=== PATIENT | male | born 1970 | race Caucasian/White ===

== ENCOUNTER 2022-09-24 09:25 | Outpatient (REF) | payer OTHER, SELFPAY ==
[2022-09-24 09:37] LABS: MANUAL DIFF FLAG NO
[2022-09-24 11:12] LABS: Basophils Absolute Auto 0.1 X10*3/uL (0.0-0.2); Basophils Percent Auto 0.7 % (0-2); Eosinophils Absolute Auto 0.2 X10*3/uL (0.0-0.4); Eosinophils Percent Auto 2.2 % (0-4); Hematocrit 45.3 % (42.0-52.0); Hemoglobin 15.8 g/dl (14.0-18.0); Imm Gran Abs Auto 0.04 X10*3/uL (0.00-0.03); Imm Gran Pct Auto 0.6 % (0.0-0.4); Lymphocytes Percent Auto 28.7 % (20-40); Mean Corpuscular HGB Conc 34.9 g/dl (31.0-36.0); Mean Corpuscular Hemoglobin 31.4 pg (27.0-33.0); Mean Corpuscular Volume 90.1 fL (80.0-98.0); Mean Platelet Volume 10.1 fL (9.4-12.4); Monocytes Absolute Auto 0.7 X10*3/uL (0.1-1.2); Monocytes Percent Auto 10.7 % (2-11); Neutrophils Percent Auto 57.1 % (45-73); Platelet Count 239 X10*3/uL (160-400); Red Blood Count 5.03 X10*6/uL (4.60-5.80); Red Cell Distribution Width 12.5 % (11.0-16.0); White Blood Count 6.9 X10*3/uL (4.8-10.8)
[2022-09-24 11:47] LABS: Alanine Aminotransferase 26 U/L (0-40); Albumin Level 4.1 g/dL (3.5-5.0); Alkaline Phosphatase 82 U/L (39-117); Anion Gap 10 (12-20); Aspartate Amino Transferase 18 U/L (5-37); Bilirubin Total 0.8 mg/dL (0.0-1.0); Blood Urea Nitrogen 13 mg/dL (9-16); Calcium 9.4 mg/dL (8.4-10.2); Carbon Dioxide 27 mmol/L (22-29); Chloride 107 mmol/L (96-108); Cholesterol 189 mg/dL; Estimated Glomerular Filt Rate > 60; Glucose Fasting 82 mg/dL (60-99); HDL Cholesterol 30 mg/dL; LDL Cholesterol Calculated 127 mg/dl; Potassium 3.9 mmol/L (3.3-5.1); Sodium 140 mmol/L (135-145); Triglycerides 162 mg/dL
== END 2022-09-24 09:26 | disposition home or self-care (01) ==
LOC: HO.LAB 09:25
PROVIDERS: PCP Internal Medicine; Visit Provider Internal Medicine
DX: N28.9 Disorder of kidney and ureter, unspecified (principal); D64.9 Anemia, unspecified; E78.5 Hyperlipidemia, unspecified
CPT/HCPCS: 36415; 80053; 80061; 85025

== ENCOUNTER 2022-10-22 14:09 | Outpatient (AMB) | payer OTHER, SELFPAY ==
--- NOTE | 2022-10-22 14:10 | MHC.PC.OV ---
Vital Signs 10/22/22 14:12 Height 6 ft 1 in Weight 243 lb 4 oz BMI 32.1 BP 120/70 Blood Pressure Location Lt brachial Position Sitting Pulse 87 Pulse Source Pulse Oximeter Pulse Oximetry (%) 97 Oxygen Delivery Method Room Air Intake Visit Reasons: Swollen Left Knee Intake Note: Patient is here to follow up on swollen left knee. Ride Operator Required: No Forensic Materials Engineer: Not Required per policy Accompanied by: Self / Same As Patient Allergies No Known Allergies Allergy (Verified 10/22/22 14:11) Medication List - Last Reconciled 10/22/22 by Frankie Milton MD cephalexin 250 mg PO Q6H fluticasone propionate 50 mcg/actuation (Flonase Allergy Relief) 1 spray intranasal BID Tobacco use date assessed: 09/24/22 Dental Screening Dental Screen Date: 10/22/22 Did you have a dental visit in the last 12 months?: Yes Did you have a dental problem in the last 6 months where you did not have access to dental care?: No Was dental information given to patient?: Patient has dentist HPI Swollen Left Knee HPI Details left leg red and warm; possible insect bite PFSH Surgical History (Updated 10/22/22 @ 14:14 by KALA Garg) History of appendectomy Social History Housing: House Patient Tobacco Use Status: Never used Tobacco Tobacco use type: Cigarette e-Cigarette/Vaping Use: Never Used Second Hand Smoke Exposure: No service: No Current occupational status: employed Cognitive needs: No Hearing needs: No Vision needs: No Questionnaire Thrive Questionnaire Date Thrive assessed: 09/24/22 JOHN-7 AMB Questionnaire JOHN-7 Date JOHN - 7 assessed: 09/24/22 Source: Developed by Drs. Luis West, Kaitlin Gordillo, Leander Moya and colleagues, with an educational tyron from [employer]. Review of Systems Const Denies chills, Denies headache(s) and Denies weight loss ENT Denies headache(s) Card Denies chest pain, Denies syncope, Denies irregular heart rhythm and Denies dyspnea Resp Denies chest congestion, Denies cough and Denies dyspnea GI Denies abdominal pain, Denies change in stool character, Denies nausea and Denies vomiting Musc Denies deformity and Denies joint swelling Neuro Denies syncope and Denies headache(s) Physical exam (Primary Care) Vital Signs: Last Vital Signs Pulse 87 10/22/22 14:12 BP 120/70 10/22/22 14:12 Pulse Ox 97 10/22/22 14:12 Oxygen Delivery Method Room Air 10/22/22 14:12 BMI result Body Mass Index 32.1 Tobacco/Smoking Status: Tobacco use Status Tobacco use date assessed 09/24/22 10/22/22 14:15 Patient Tobacco Use Status Never used Tobacco 10/22/22 14:15 Tobacco use type Cigarette 10/22/22 14:15 e-Cigarette/Vaping Use Never Used 10/22/22 14:15 Thrive Assessment: Date of Thrive Assessment Date Thrive assessed 09/24/22 10/22/22 14:15 Const General: cooperative, comfortable and no acute distress Resp Effort & Inspection: normal respiratory effort Auscultation: clear to auscultation bilaterally Percussion: percussion normal Cardio Jugular venous distension: no JVD Rate: regular rate Rhythm: regular rhythm Skin Other: cellulitis left lower leg Assessment and Plan Assessment & Plan (1) Cellulitis, leg: Code(s): L03.119 - Cellulitis of unspecified part of limb Plan rx Orders: Orders XR knee LT 2V Today M25.569 - Pain in unspecified knee Medications: New cephalexin 250 mg PO Q6H 20 caps 0RF Coding Level of Care Code Est Pt Level 3 (46094) Diagnoses Cellulitis, leg L03.119
[2022-10-22 14:12] VITALS: BP 120/70; PULSE 87; O2SAT 97; BMI 32.1
== END 2022-10-22 14:21 | disposition home or self-care (01) ==
PROVIDERS: PCP Internal Medicine; Visit Provider Internal Medicine
DX: L03.119 Cellulitis of unspecified part of limb (principal)
CPT/HCPCS: 99213

== ENCOUNTER 2022-10-22 14:24 | Outpatient (REF) | payer OTHER, SELFPAY ==
--- NOTE | ~2022-10-22 | XR_ITS ---
EXAMINATION: XR KNEE, LEFT CLINICAL INFORMATION: Pain. No injury. Left knee swelling. COMPARISON: None available. TECHNIQUE: 2 views of the left knee. XR/XR knee LT 2V FINDINGS / IMPRESSION: No fracture. Alignment is anatomic. There is mild degenerative disease of the patellofemoral joint. No suprapatellar effusion. No abnormal soft tissue calcification.
== END 2022-10-22 14:25 | disposition home or self-care (01) ==
LOC: HO.XRAY 14:24
PROVIDERS: PCP Internal Medicine; Visit Provider Internal Medicine
DX: M25.562 Pain in left knee (principal)
CPT/HCPCS: 73560

== ENCOUNTER 2022-11-09 11:38 | Outpatient (AMB) | payer OTHER, SELFPAY ==
--- NOTE | 2022-11-09 11:44 | A.OFFPC_ITS ---
Vital Signs 11/09/22 11:45 Height 6 ft 1 in Weight 238 lb 8 oz BMI 31.5 BP 120/60 Blood Pressure Location Lt brachial Position Sitting Pulse 72 Pulse Source Pulse Oximeter Pulse Oximetry (%) 97 Oxygen Delivery Method Room Air Intake Visit Reasons: Ear Blockage Intake Note: Patient is here today for right ear blockage and ringing Skip Pit Worker Required: No Office Asst: Not Required per policy Accompanied by: Self / Same As Patient Allergies No Known Allergies Allergy (Verified 11/09/22 11:45) Tobacco use date assessed: 11/09/22 HPI Ear Blockage HPI Details ringing and ear blockage for a month or so [facility] Surgical History History of appendectomy Social History Housing: House Patient Tobacco Use Status: Never used Tobacco Tobacco use type: Cigarette e-Cigarette/Vaping Use: Never Used Second Hand Smoke Exposure: No service: No Current occupational status: employed Cognitive needs: No Hearing needs: No Vision needs: No Questionnaire Thrive Questionnaire Date Thrive assessed: 09/24/22 JOHN-7 AMB Questionnaire JOHN-7 Date JOHN - 7 assessed: 09/24/22 Source: Developed by Drs. Luis West, Kaitlin Gordillo, Leander Moya and colleagues, with an educational tyron from [employer]. Review of Systems Const Denies chills, Denies headache(s) and Denies weight loss ENT Denies headache(s) Card Denies chest pain, Denies syncope, Denies irregular heart rhythm and Denies dyspnea Resp Denies chest congestion, Denies cough and Denies dyspnea GI Denies abdominal pain, Denies change in stool character, Denies nausea and Denies vomiting Musc Denies deformity and Denies joint swelling Neuro Denies syncope and Denies headache(s) Physical exam (Primary Care) Vital Signs: Last Vital Signs Pulse 72 11/09/22 11:45 BP 120/60 11/09/22 11:45 Pulse Ox 97 11/09/22 11:45 Oxygen Delivery Method Room Air 11/09/22 11:45 BMI result Body Mass Index 31.5 Tobacco/Smoking Status: Tobacco use Status Tobacco use date assessed 11/09/22 11/09/22 11:49 Patient Tobacco Use Status Never used Tobacco 11/09/22 11:49 Tobacco use type Cigarette 11/09/22 11:49 e-Cigarette/Vaping Use Never Used 11/09/22 11:49 Thrive Assessment: Date of Thrive Assessment Date Thrive assessed 09/24/22 11/09/22 11:49 Const General: cooperative, comfortable and no acute distress HENMT Other: tms nl Resp Effort & Inspection: normal respiratory effort Auscultation: clear to auscultation bilaterally Percussion: percussion normal Cardio Jugular venous distension: no JVD Rate: regular rate Rhythm: regular rhythm Skin Other: cellulitis left lower leg Assessment and Plan Assessment & Plan (1) Abnormal ear sensation: Code(s): H93.8X9 - Other specified disorders of ear, unspecified ear Plan: ref ent Orders: Referrals Ear/Nose/Throat Referral H93.8X9 - Other specified disorders of ear, unspecified ear Coding Level of Care Code Est Pt Level 3 (02446) Diagnoses Abnormal ear sensation H93.8X9
[2022-11-09 11:45] VITALS: BP 120/60; PULSE 72; O2SAT 97; BMI 31.5
== END 2022-11-09 11:55 | disposition home or self-care (01) ==
PROVIDERS: PCP Internal Medicine; Visit Provider Internal Medicine
DX: H93.8X9 Other specified disorders of ear, unspecified ear (principal)
CPT/HCPCS: 99213

== ENCOUNTER 2023-06-10 09:56 | Day surgery (SDC) | payer BC, SELFPAY ==
[2023-06-08 14:45] VITALS: BMI 32.1
--- NOTE | 2023-06-09 13:11 | HO.ANESPROP2 ---
HPI - Anesthesia Eval Consult details Narrative: 52yo M for Colonoscopy PMFSH Active Problems Active Problems: All Active Problems (Updated 06/08/23 @ 14:47 by Digna Barahona RN) Allergic rhinitis (Acute) Physical exam (Acute) Past Medical History Medical History (Updated 06/08/23 @ 14:47 by Digna Barahona RN) No pertinent past medical history Surgical History Surgical History History of appendectomy Social History Social History (Updated 06/08/23 @ 14:46 by Digna Barahona RN) Housing: House Patient Tobacco Use Status: Never used Tobacco Tobacco use type: Cigarette e-Cigarette/Vaping Use: Never Used Second Hand Smoke Exposure: No Use of substances other than those prescribed or required for medical reasons: No Are you DNR?: No Advance Directives: No Advance Directives Information Provided: Yes Advance Directives on File: No service: No Current occupational status: employed Cognitive needs: No Hearing needs: No Vision needs: No Meds Allergies Allergy/AdvReac Type Severity Reaction Status Date / Time No Known Allergies Allergy Verified 11/09/22 11:45 Home Medications Medication Instructions Recorded Confirmed Last Taken Type cyclobenzaprine 10 mg tablet 10 mg PO BEDTIME 06/08/23 06/08/23 Unknown History multivitamin 1 tab PO DAILY 06/08/23 06/08/23 Unknown History Exam Height,Weight and Vital Signs: Height 6 ft 1 in Weight 110.223 kg Assessment and Plan Assessment Anesthesia Assessment: Chart Reviewed
[2023-06-10 10:32] VITALS: BMI 32.2
[2023-06-10 10:43] VITALS: BP 117/74; PULSE 77; RESP 16; TEMP 36.6; O2SAT 97
[2023-06-10 12:02] VITALS: BP 95/67; PULSE 71; RESP 12; TEMP 36.6; O2SAT 95
--- NOTE | 2023-06-10 12:08 | P.BOP_ITS ---
Brief Operative Note Date of Service: 06/10/23 Pre-op diagnosis: Screening Post-op diagnosis: other (Colon polyps) Procedure: Colonoscopy to the cecum and TI with hot snare polypectomy x 3, and bx/removal of polyp x 1. Surgeon: Luis Fields MD Anesthesia: MAC Was an Attending Urologist used for this Procedure?: No Estimated blood loss (mL): 2.0 Pathology: other (A. Transverse colon polyps B. Ascending colon polyp C. Rectal polyp) Condition: stable Disposition: PACU
[2023-06-10 12:17] VITALS: BP 105/73; PULSE 71; RESP 16; O2SAT 97
[2023-06-10 12:32] VITALS: BP 109/67; PULSE 86; RESP 16; TEMP 36.6; O2SAT 97
--- NOTE | 2023-06-14 08:32 | OP_ITS ---
DATE OF SERVICE: 06/10/2023 SURGEON: Luis Fields MD INDICATIONS: The patient presents for evaluation of colorectal cancer screening. Full consent has been obtained from him for this, including risks of bleeding and perforation. PREOPERATIVE DIAGNOSIS: Colorectal cancer screening. POSTOPERATIVE DIAGNOSIS: PROCEDURE PERFORMED: Colonoscopy to the cecum and terminal ileum with hot snare polypectomy x3, and biopsy and removal of polyp. ESTIMATED BLOOD LOSS: COMPLICATIONS: ANESTHESIA: Monitored anesthesia care. ASSISTANTS: SPECIMENS: POSTOPERATIVE DIAGNOSES: Colorectal cancer screening, colon polyps, diverticulosis, and internal hemorrhoids. DESCRIPTION OF PROCEDURE: The patient was placed in the left lateral decubitus position. The digital rectal exam revealed no abnormality. The Olympus video pediatric colonoscope was entered into the rectum and advanced easily to the cecum. Once in the cecum, I did identify normal-appearing cecal pouch with appendiceal orifice and a normal-appearing ileocecal valve. The terminal ileum was cannulated and appeared normal. The scope was withdrawn back in the colon. The entire cecum and ileocecal valve appeared normal. The scope was slowly withdrawn assessing all mucosal surfaces carefully. Preparation was excellent. In the proximal ascending colon was an approximately 8 to 10 mm grossly adenomatous polyp, which was removed by hot snare polypectomy and recovered by suction. The polypectomy site appeared clean, without any sign of residual polyp nor bleeding. In the transverse colon was a flat, approximately 4 mm polyp, which was removed completely by cold biopsy forceps. In the same area was an approximately 6 mm polyp, which was removed by hot snare polypectomy and recovered by suction. The polypectomy site appeared clean, without any sign of residual polyp nor bleeding. Both of those polyps were placed in the same container. There was a mild amount of sigmoid diverticulosis. I did not visualize any sign of colitis or angiodysplasia. In the mid rectum was an approximately 10 to 12 mm polyp on a short stalk, which was removed by hot snare polypectomy and recovered by suction. The polypectomy site appeared clean, without any sign of residual polyp nor bleeding. I did not visualize any other polyps. In the rectum, scope was retroflexed visualizing some small internal hemorrhoids, but no other pathology. The rectal mucosa appeared normal. The scope was straightened and withdrawn from the patient. He tolerated the procedure well and was returned to the recovery area in stable condition. IMPRESSION: 1. Colon polyps. 2. Diverticulosis. 3. Internal hemorrhoids. PLAN: Given today's findings, I would recommend a repeat colonoscopy in 5 years for further surveillance. He was advised not to use any aspirin nor NSAIDs for at least 1 week. This has been discussed with his . MD LEANN Carrera/RHONDA / [phone]
== END 2023-06-10 12:54 | disposition home or self-care (01) ==
PROVIDERS: PCP Internal Medicine; Visit Provider Internal Medicine
PROC: 0DJD8ZZ Inspection of Lower Intestinal Tract, Via Natural or Artificial Opening Endoscopic (ICD-10-PCS; CPT 45378; principal; 2023-06-10 11:50)
DX: Z12.11 Encounter for screening for malignant neoplasm of colon (principal); D12.2 Benign neoplasm of ascending colon; D12.3 Benign neoplasm of transverse colon; D12.8 Benign neoplasm of rectum; K57.30 Diverticulosis of large intestine without perforation or abscess without bleeding; K64.8 Other hemorrhoids
CPT/HCPCS: 45385; 45380; 88305; J2250; J2704

== ENCOUNTER 2023-07-12 09:21 | Outpatient (AMB) | payer BC, SELFPAY ==
[2023-07-12 09:21] VITALS: BP 116/80; PULSE 67; O2SAT 98; BMI 32.2
--- NOTE | 2023-07-12 09:21 | A.OFFPC_ITS ---
Vital Signs 07/12/23 09:21 Height 6 ft 1 in Weight 244 lb BMI 32.2 BP 116/80 Blood Pressure Location Lt brachial Position Sitting Pulse 67 Pulse Source Pulse Oximeter Pulse Oximetry (%) 98 Oxygen Delivery Method Room Air Intake Visit Reasons: knee problems Group Insurance Special Agent Required: No Prosthetic Aide: Not Required per policy Accompanied by: Self / Same As Patient Allergies No Known Allergies Allergy (Verified 07/12/23 09:22) Tobacco use date assessed: 07/12/23 Dental Screening Dental Screen Date: 07/12/23 Did you have a dental visit in the last 12 months?: Yes Did you have a dental problem in the last 6 months where you did not have access to dental care?: No Was dental information given to patient?: Patient has dentist HPI knee problems HPI Details right knee pain intermittently for months; denies injury [facility] Medical History (Updated 07/12/23 @ 09:31 by Frankie Milton MD) No pertinent past medical history Surgical History History of appendectomy Social History Housing: House Patient Tobacco Use Status: Never used Tobacco Tobacco use type: Cigarette e-Cigarette/Vaping Use: Never Used Second Hand Smoke Exposure: No service: No Current occupational status: employed Cognitive needs: No Hearing needs: No Vision needs: Yes Questionnaire PHQ-9 Over the last 2 weeks, how often have you been bothered by any of the following problems? 1. Little interest or pleasure in doing things: not at all 2. Feeling down, depressed, or hopeless: not at all 3. Trouble falling or staying asleep, or sleeping too much: not at all 4. Feeling tired or having little energy: not at all 5. Poor appetite or overeating: not at all 6. Feeling bad about yourself - or that you are a failure or have let yourself or your family down: not at all 7. Trouble concentrating on things, such as reading the newspaper or watching television: not at all 8. Moving or speaking so slowly that other people could have noticed. Or the opposite - being so fidgety or restless that you have been moving around a lot more than usual: not at all 9. Thoughts that you would be better off or of hurting yourself in some way: not at all Total score: 0 Depression Screening Interpretation: Negative Depression Screening Done: Yes 63992 - PHQ-9 Billing: Yes Source: Developed by Drs. Luis West, Leander Vela and colleagues, with an educational tyron from [employer]. Thrive Questionnaire Date Thrive assessed: 07/12/23 I am a: Patient What is your living situation today?: I have a steady place to live Within the past 12 months, did the food you bought not last and you didn't have the money to get more?: Never true Within the past 12 months, did you worry whether your food would run out before you got money to buy more?: Never true Do you have trouble paying for medicines?: No Do you have trouble getting transportation to medical appointments?: No Do you have trouble paying your heating and electricity bill?: No Do you have trouble taking care of your child, family member or friend?: No Do you have trouble with day-to-day activities such as bathing, preparing meals, shopping, managing finances, etc.?: No Are you currently unemployed and looking for a job?: No Are you interested in more education?: No Please select the resources that you would like help with: None THRIVE Score: 0 AUDIT C Alcohol Use Questionnaire (AUDIT-C) 1. How often do you have a drink containing alcohol?: Never Total Score: 0 Score Reviewed/Action Taken: Yes JOHN-7 AMB Questionnaire JOHN-7 Date JOHN - 7 assessed: 07/12/23 Feeling nervous, anxious, or on edge: 0 = Not at all Not being able to stop or control worryin = Not at all Worrying too much about different things: 0 = Not at all Trouble relaxin = Not at all Being so restless that it is hard to sit still: 0 = Not at all Becoming easily annoyed or irritable: 0 = Not at all Feeling afraid as if something awful might happen: 0 = Not at all Total JOHN-7 score (0-4 normal; 5-9 mild; 10-14 moderate; 15-21 severe): 0 Source: Developed by Kaitlin Cervantes Kurt Kroenke and colleagues, with an educational tyron from [employer]. Review of Systems Const Denies chills, Denies headache(s) and Denies weight loss ENT Denies headache(s) Card Denies chest pain, Denies syncope, Denies irregular heart rhythm and Denies dyspnea Resp Denies chest congestion, Denies cough and Denies dyspnea GI Denies abdominal pain, Denies change in stool character, Denies nausea and Denies vomiting Musc Denies deformity and Denies joint swelling Neuro Denies syncope and Denies headache(s) Physical exam (Primary Care) Vital Signs: Last Vital Signs Pulse 67 07/12/23 09:21 BP 116/80 07/12/23 09:21 Pulse Ox 98 07/12/23 09:21 Oxygen Delivery Method Room Air 07/12/23 09:21 BMI result Body Mass Index 32.2 Tobacco/Smoking Status: Tobacco use Status Tobacco use date assessed 07/12/23 07/12/23 09:23 Patient Tobacco Use Status Never used Tobacco 07/12/23 09:23 Tobacco use type Cigarette 07/12/23 09:23 e-Cigarette/Vaping Use Never Used 07/12/23 09:23 PHQ-9: PHQ-9 Score PHQ-9: Total score 0 07/12/23 09:23 Depression Screening Interpretation: Negative Thrive Assessment: Date of Thrive Assessment Date Thrive assessed 07/12/23 07/12/23 09:23 Const General: cooperative, comfortable, no acute distress and alert Neck Neck: Yes no lymphadenopathy Thyroid: Thyroid normal Resp Effort & Inspection: normal respiratory effort Auscultation: clear to auscultation bilaterally Percussion: percussion normal Cardio Jugular venous distension: no JVD Palpation: normal PMI Rate: regular rate Rhythm: regular rhythm Heart sounds: S1 normal heart sound present and S2 normal heart sound present GI Inspection: Yes normal to inspection Palpation (GI): No hepatosplenomegaly present Skin General skin exam: no rashes or lesions noted Extrem General: Yes no clubbing, cyanosis or edema Assessment and Plan Assessment & Plan (1) Knee pain, right: Code(s): M25.561 - Pain in right knee Plan: xr; ice ans NSAIDS Orders: Orders XR knee RT 2V Today M25.569 - Pain in unspecified knee Referrals Dermatology Referral R22.9 - Localized swelling, mass and lump, unspecified Orthopedics Referral M25.561 - Pain in right knee Coding Level of Care Code Est Pt Level 3 (60234) Diagnoses Knee pain, right M25.561
== END 2023-07-12 09:40 | disposition home or self-care (01) ==
PROVIDERS: PCP Internal Medicine; Visit Provider Internal Medicine
DX: M25.561 Pain in right knee (principal)
CPT/HCPCS: 99213

== ENCOUNTER 2023-08-02 10:23 | Outpatient (AMB) | payer BC, SELFPAY ==
[2023-08-02 10:44] VITALS: BMI 32.2
--- NOTE | 2023-08-02 10:44 | MHC.OFFVIS ---
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 He describes his pain as sharp in nature. Most of the pain is along the medial aspect of his knee. His pain has gotten worse over the last year in spite of continued non operative treatments. He has failed the last 6 weeks of conservative therapy. He has done physical therapy exercises which aggravated his pain. He has also tried Tylenol and anti-inflammatory medicines which gave him minimal relief. Allergies No Known Allergies Allergy (Verified 08/02/23 10:49) Medication List - Last Reconciled 08/02/23 by Gael White MD multivitamin 1 tab PO DAILY [facility] Medical History (Updated 07/12/23 @ 09:31 by Frankie Milton MD) No pertinent past medical history Surgical History History of appendectomy Social History Housing: House Patient Tobacco Use Status: Never used Tobacco Tobacco use type: Cigarette e-Cigarette/Vaping Use: Never Used Second Hand Smoke Exposure: No service: No Current occupational status: employed Cognitive needs: No Hearing needs: No Vision needs: Yes Physical Exam Vital Signs: BMI result Body Mass Index 32.2 Const Other: Well-nourished well-developed very friendly male awake alert and oriented x3 in no acute distress Extrem Other: Bilateral lower extremity examination shows good capillary refill, no skin lesions noted, normal sensation light touch Right knee examination shows a minimal effusion, minimal crepitus with range of motion, tenderness along his medial joint line, positive Larry's test, no instability Results Reviewed Results Reviewed: Standing full weight-bearing X-rays of the patient's right knee show minimal joint space narrowing, no acute bony abnormalities Assessment & Plan Assessment & Plan (1) Knee pain, right: Code(s): M25.561 - Pain in right knee Category: Medical Plan Mr. James presents with right knee pain and mechanical symptoms most likely due to a tear of his medial meniscus. Thus, I will send the patient for an MRI of his right knee for further evaluation. Once the MRI is completed to discuss the findings and treatment options. Feel free to call me at any time should questions regarding his orthopedic management arise. Thank you very much for asking me see this very friendly gentleman. I spent 22 minutes in reviewing the patient's records and imaging studies, seeing the patient and documenting in the medical record. Orders: Orders MR knee RT wo con Today M25.561 - Pain in right knee Coding Level of Care Code New Pt Level 2 (08756) Diagnoses Knee pain, right M25.561
== END 2023-08-02 11:12 | disposition home or self-care (01) ==
PROVIDERS: PCP Internal Medicine; Visit Provider Orthopaedic Surgery
DX: M25.561 Pain in right knee (principal)
CPT/HCPCS: 99202

== ENCOUNTER → 2023-08-02 10:23 | Outpatient (BNVA) | payer BC, SELFPAY | PROVIDERS: PCP Internal Medicine; Visit Provider Orthopaedic Surgery ==

== ENCOUNTER 2023-08-16 07:36 | Outpatient (AMB) | payer BC, SELFPAY ==
--- NOTE | 2023-08-16 07:45 | A.OFFVIS_ITS ---
Vital Signs 08/16/23 07:46 Height 5 ft 1 in Weight 244 lb BMI 46.1 Intake Visit Reasons: OV- MRI review Right knee Intake Note: Rivas is a 52 year old male who presents for his Right knee MRI. Describes his right knee pain as sharp in nature. He has had cortisone injections given into his low back which gave him only short-term relief. He has tried Tylenol and anti-inflammatory medicines which gave him minimal relief. He has also done physical therapy exercises which aggravated his pain. Wishes to hold off on surgery for as long as possible. Allergies No Known Allergies Allergy (Verified 08/16/23 07:46) Medication List - Last Reconciled 08/16/23 by Gael White MD multivitamin 1 tab PO DAILY [facility] Medical History No pertinent past medical history Surgical History History of appendectomy Social History Housing: House Patient Tobacco Use Status: Never used Tobacco Tobacco use type: Cigarette e-Cigarette/Vaping Use: Never Used Second Hand Smoke Exposure: No service: No Current occupational status: employed Cognitive needs: No Hearing needs: No Vision needs: Yes Physical Exam Vital Signs: BMI result Body Mass Index 46.1 Const Other: Well-nourished well-developed very friendly male awake alert and oriented x3 in no acute distress Extrem Other: Bilateral lower extremity examination shows good capillary refill, no skin lesions noted, normal sensation light touch Right knee examination shows a minimal effusion, palpable crepitus with range of motion, pain with range of motion, no instability Results Reviewed Results Reviewed: MRI of the patient's right knee shows diffuse moderate degenerative changes as well as 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 James presents with right knee pain due to degenerative joint disease. I had a lengthy discussion with the patient regarding the treatment options. He wishes to hold off on right total knee replacement surgery for as long as possible. I agree with this plan. I will see whether not the patient's insurance company will cover a viscosupplementation injection. I I will see him back once the injection is available. Feel free to call me at any time should questions regarding his orthopedic management arise. I spent 20 minutes in reviewing the patient's records and imaging studies, seeing the patient and documenting in the medical record. Coding Level of Care Code Est Pt Level 3 (23580) Diagnoses Arthritis of right knee M17.11
[2023-08-16 07:46] VITALS: BMI 46.1
== END 2023-08-16 07:58 | disposition home or self-care (01) ==
PROVIDERS: PCP Internal Medicine; Visit Provider Orthopaedic Surgery
DX: M17.11 Unilateral primary osteoarthritis, right knee (principal)
CPT/HCPCS: 99213

== ENCOUNTER → 2023-08-16 07:36 | Outpatient (BNVA) | payer BC, SELFPAY | PROVIDERS: PCP Internal Medicine; Visit Provider Orthopaedic Surgery ==

== ENCOUNTER 2023-10-11 07:35 | Outpatient (AMB) | payer BC, SELFPAY ==
--- NOTE | 2023-10-11 07:42 | MHC.OFFVIS ---
Intake Visit Reasons: OV - Right knee pain Intake Note: Rivas is a 52 year old male who presents as a new patient with Right knee pain and giving way. He describes his pain as sharp in nature. Most of the pain is along the medial aspect of his knee. His pain has gotten worse over the last year in spite of continued non operative treatments. He has failed the last 6 weeks of conservative therapy. He has done physical therapy exercises which aggravated his pain. He has also tried Tylenol and anti-inflammatory medicines which gave him minimal relief. Allergies No Known Allergies Allergy (Verified 10/11/23 07:42) Medication List - Last Reconciled 10/11/23 by Gael White MD multivitamin 1 tab PO DAILY [facility] Medical History No pertinent past medical history Surgical History History of appendectomy Social History Housing: House Patient Tobacco Use Status: Never used Tobacco Tobacco use type: Cigarette e-Cigarette/Vaping Use: Never Used Second Hand Smoke Exposure: No service: No Current occupational status: employed Cognitive needs: No Hearing needs: No Vision needs: Yes Physical Exam Const Other: Well-nourished well-developed very friendly male awake alert and oriented x3 in no acute distress Extrem Other: Bilateral lower extremity examination shows good capillary refill, no skin lesions noted, normal sensation light touch Right knee examination shows a minimal effusion, minimal crepitus with range of motion, tenderness along his medial joint line, positive Larry's test, no instability Results Reviewed Results Reviewed: MRI of the patient's right knee shows mild to moderate diffuse degenerative changes as well as a tear of the medial meniscus Assessment & Plan Assessment & Plan (1) Tear of medial meniscus of right knee: Code(s): S83.241A - Other tear of medial meniscus, current injury, right knee, initial encounter Category: Medical Plan Mr. James presents with progressively worsening right knee pain and mechanical symptoms due to early degenerative joint disease as well as a tear of his medial meniscus. I had a lengthy discussion with the patient regarding the treatment options. At this point he has failed continued non operative treatments. The risks and benefits of right knee arthroscopic surgery were discussed at length with the patient. The patient wishes to proceed with surgery. He does understand that he may not get 100% relief of his symptoms depending on the severity of his degenerative changes. The patient will be scheduled for next available date. He will follow-up as instructed. Feel free to call me at any time should questions regarding his orthopedic management arise. I spent 20 minutes in reviewing the patient's records and imaging studies, seeing the patient and documenting in the medical record. Coding Level of Care Code Est Pt Level 3 (04780) Diagnoses Tear of medial meniscus of right knee S83.241A
== END 2023-10-11 07:59 | disposition home or self-care (01) ==
PROVIDERS: PCP Internal Medicine; Referring Provider Internal Medicine; Visit Provider Orthopaedic Surgery
DX: S83.241A Other tear of medial meniscus, current injury, right knee, initial encounter (principal)
CPT/HCPCS: 99214

== ENCOUNTER → 2023-10-11 07:35 | Outpatient (BNVA) | payer BC, SELFPAY | PROVIDERS: PCP Internal Medicine; Visit Provider Orthopaedic Surgery ==

== ENCOUNTER 2023-10-21 06:45 | Day surgery (SDC) | payer BC, SELFPAY ==
[2023-10-19 11:20] VITALS: BMI 32.2
--- NOTE | 2023-10-19 14:13 | HO.ANESPROP2 ---
Documented by User: Angeline Ponce NP 10/19/23 14:14 HPI - Anesthesia Eval Consult details Narrative: 52yo M for Right Knee Arthroscopy partial medial meniscectomy, [facility] Active Problems Active Problems: All Active Problems Tear of medial meniscus of right knee (Acute) Arthritis of right knee (Acute) Knee pain, right (Acute) Allergic rhinitis (Acute) Physical exam (Acute) Past Medical History Medical History Arthritis Surgical History Surgical History H/O colonoscopy History of appendectomy Social History Social History Housing: House Patient Tobacco Use Status: Never used Tobacco Tobacco use type: Cigarette e-Cigarette/Vaping Use: Never Used Second Hand Smoke Exposure: No Use of substances other than those prescribed or required for medical reasons: No Are you DNR?: No Advance Directives: No Advance Directives Information Provided: Yes service: No Current occupational status: employed Cognitive needs: No Hearing needs: No Vision needs: Yes Meds Allergies Allergy/AdvReac Type Severity Reaction Status Date / Time No Known Allergies Allergy Verified 10/21/23 07:02 Active Medications: Current Medications Cefazolin Sodium/Dextrose (Ancef) 2 gm in 50 mls @ 100 mls/hr IV PREOP ONE Stop: 10/21/23 06:04 Home Medications ?Medication ?Instructions ?Recorded ?Confirmed ?Last Taken ?Type multivitamin 1 tab PO DAILY 06/08/23 10/19/23 Unknown History Exam Height,Weight and Vital Signs: Height 6 ft 1 in Weight 110.677 kg Assessment and Plan Assessment Anesthesia Assessment: Chart Reviewed Documented by User: Dee Juarez MD 10/21/23 07:56 PMF Past Medical History Medical History Arthritis Family History Family history of problems with anesthesia: No Surgical History Surgical History H/O colonoscopy History of appendectomy History of Problems with Anesthesia: No Social History Social History Housing: House Patient Tobacco Use Status: Never used Tobacco Tobacco use type: Cigarette e-Cigarette/Vaping Use: Never Used Second Hand Smoke Exposure: No Use of substances other than those prescribed or required for medical reasons: No Are you DNR?: No Advance Directives: No Advance Directives Information Provided: Yes service: No Current occupational status: employed Cognitive needs: No Hearing needs: No Vision needs: Yes Meds Allergies Allergy/AdvReac Type Severity Reaction Status Date / Time No Known Allergies Allergy Verified 10/21/23 07:02 Home Medications ?Medication ?Instructions ?Recorded ?Confirmed ?Last Taken ?Type multivitamin 1 tab PO DAILY 06/08/23 10/19/23 Unknown History Exam Airway Mallampati Class: II TM Dist: >3cm Neck ROM: Full Heart: rrr Lungs: cta Assessment and Plan Assessment Anesthesia Assessment: Anesthesia Plan Discussed Final Anesthetic Review Family History of Problems with Anesthesia: No History of Problems with Anesthesia: No NPO: Yes ASA Class: II Final Preanesthetic Review: No Changes in Pt Med Stat, Meds/Allgs Chart Reviewed, Consent Obtained/Reviewed and Anes Risks/Benef Reviewed Patient Risk: Low Procedure Risk: Low Anesthetic Plan Anesthetic Plan: GA Disposition: Standard PACU
[2023-10-21] VITALS (8 sets, daily range): BP systolic 117–133; BP diastolic 56–85; PULSE 62–74; RESP 16; TEMP 36.5–36.6; O2SAT 94–96; BMI 31.4
[2023-10-21] MEDS: Lactated Ringers 1,000 ML 100 ML IVCONT (07:28)
--- NOTE | 2023-10-21 09:05 | PC.NURSE ---
24hr update documented on paper.
[2023-10-21] MEDS: fentaNYL citrate/PF 100 MCG/2 ML VIAL 25 MCG IVPUSH ×2 (09:54→10:00)
--- NOTE | 2023-10-21 09:54 | P.BOP_ITS ---
Brief Operative Note Date of Service: 10/21/23 Pre-op diagnosis: Right knee medial meniscus tear, right knee lateral meniscus tear, right knee degenerative joint disease Post-op diagnosis: same Procedure: Right knee arthroscopic partial medial and lateral meniscectomies, right knee arthroscopic chondroplasty of the undersurface of the patella and medial femoral condyle Implants: None Surgeon: Gael White MD Anesthesia: GLMA Was an Beaver Trapper used for this Procedure?: No Estimated blood loss (mL): 10 Pathology: none sent Condition: stable Disposition: PACU
--- NOTE | 2023-10-21 09:55 | W.PM.OPN ---
Operative Note Operative Note Date of Service: 10/21/23 Narrative: After the patient was identified as Rivas James and his right knee was initialed by myself they were brought to the operating room where general anesthesia was induced by the anesthesiologist in routine fashion. The patient was given 2 g of IV Ancef for infection prophylaxis. A formal time-out was completed. The patient's right lower extremity was prepped and draped in sterile fashion. Marcaine with epinephrine was injected into the planned incision sites as well as their right knee joint. A # 11 scalpel blade was used to make an anterolateral portal 1 cm proximal to the joint line and 1 cm lateral to the patellar tendon. Blunt trocar technique was used into the suprapatellar pouch with the knee in extension. Diagnostic arthroscopy showed multiple bands of thickened plica which would be excised at the end of the procedure. There were no loose bodies or abnormalities found in either the medial or lateral gutters. There were diffuse grades 2 and 3 degenerative changes of the undersurface of the patella as well as grades 1 and 2 degenerative changes of the trochlear groove. The patient's knee was flexed to 45 degrees and a valgus force was placed upon it. The medial compartment was entered. An anteromedial portal was made 1 cm proximal to the joint line and 1 cm medial to the patellar tendon. Probing of the medial meniscus showed a radial tear of the anterior horn. A partial medial meniscectomy was performed using the arthroscopic shaver. Following the partial meniscectomy the remainder of the meniscus tissue was stable. There were diffuse grades 1 and 2 degenerative changes of the medial femoral condyle as well as diffuse grade 1 degenerative changes of the medial tibial plateau. The articular surface of the medial femoral condyle was made smooth using the arthroscopic shaver. The articular surface of the medial tibial plateau was already smooth so no chondroplasty was indicated. The patient's knee was then placed into a neutral position. There was no injury to the anterior cruciate ligament. The patient's knee was then placed into the figure of 4 position and the lateral compartment was entered. There were diffuse grade 2 and 3 degenerative changes of the lateral femoral condyle and lateral tibial plateau. The articular surfaces were smooth so no chondroplasty was indicated. There was a radial tear of the anterior horn of the lateral meniscus. A partial lateral meniscectomy was performed using the arthroscopic shaver. Following the partial meniscectomy the remainder of the meniscus tissue was stable. The patient's knee was once again brought into extension and the suprapatellar pouch was entered. The arthroscopic shaver and the ArthroCare Wand were used to excise the thickened bands of plica. The undersurface of the patella was then made smooth using the arthroscopic shaver. The articular surface of the trochlear groove was already smooth so no chondroplasty was indicated. The knee joint was irrigated and then drained. All arthroscopic instruments were removed. The 2 portals were closed with 3-0 nylon interrupted suture. The knee joint was injected with Marcaine. Dry sterile dressing and Diego bandages were placed over the patient's knee. The patient was awoken and extubated in the operating room. They were transferred to the recovery room in stable condition.
[2023-10-21] MEDS: cefTRIAXone sodium 1 GM in 0.9 % Sodium Chloride 50 ML IV (10:05)
== END 2023-10-21 11:10 | disposition home or self-care (01) ==
PROVIDERS: PCP Internal Medicine; Visit Provider Orthopaedic Surgery
PROC: (CPT 29870; principal; 2023-10-21 09:00)
DX: S83.241A Other tear of medial meniscus, current injury, right knee, initial encounter (principal); S83.281A Other tear of lateral meniscus, current injury, right knee, initial encounter; M17.11 Unilateral primary osteoarthritis, right knee; M67.51 Plica syndrome, right knee; Z79.899 Other long term (current) drug therapy; X58.XXXA Exposure to other specified factors, initial encounter; Y93.9 Activity, unspecified; Y92.9 Unspecified place or not applicable; Y99.8 Other external cause status
CPT/HCPCS: 29880; 29876; J0131; J0171; J0690; J0696; J1100; J1885; J2405; J2704; J2795; J3010

== ENCOUNTER → 2023-10-21 06:45 | Outpatient (BNV) | payer BC, SELFPAY | PROVIDERS: PCP Internal Medicine; Visit Provider Orthopaedic Surgery | DX: S83.241A Other tear of medial meniscus, current injury, right knee, initial encounter (principal); S83.281A Other tear of lateral meniscus, current injury, right knee, initial encounter | CPT/HCPCS: 29880 ==

== ENCOUNTER 2023-11-03 11:28 | Outpatient (AMB) | payer BC, SELFPAY ==
--- NOTE | 2023-11-03 11:28 | MHC.OFFVIS ---
Intake Visit Reasons: PO RT knee 10/21/23 Intake Note: Rivas is a 52 year old male who presents for his 1st postoperative appointment after undergoing right knee arthroscopic surgery on 10/21/2023. The patient reports mild intermittent discomfort in his right knee. He denies any fevers or chills. He continues with his home stretching program. He has been taking tramadol which gives him good relief. Allergies No Known Allergies Allergy (Verified 11/03/23 11:29) Medication List - Last Reconciled 11/03/23 by Gael White MD multivitamin 1 tab PO DAILY tramadol 50 mg PO Q6H PRN PFSH Medical History Arthritis Surgical History H/O colonoscopy History of appendectomy Social History Housing: House Patient Tobacco Use Status: Never used Tobacco Tobacco use type: Cigarette e-Cigarette/Vaping Use: Never Used Second Hand Smoke Exposure: No service: No Current occupational status: employed Cognitive needs: No Hearing needs: No Vision needs: Yes Physical Exam Extrem Other: Right knee examination shows that the surgical incisions are healing well, no erythema, minimal discomfort with range of motion, minimal crepitus with range of motion Assessment & Plan Assessment & Plan (1) Knee pain, right: Code(s): M25.561 - Pain in right knee Category: Medical Plan Mr. James is doing well after undergoing right knee arthroscopic surgery on 10/21/2023. His sutures were removed and Steri-Strips placed over his incisions. Will gradually progress to activities as tolerated. I did refill his prescription for tramadol. Will contact me prior to his follow-up appointment in 6 weeks should any questions or concerns arise. Feel free to call me at any time should questions regarding his orthopedic management arise. Medications: Changed From tramadol 50 mg PO Q6H PRN 20 tabs 0RF pain To tramadol 50 mg PO Q12H PRN 30 tabs 0RF pain Coding Level of Care Code Global (59895) Diagnoses Knee pain, right M25.561
== END 2023-11-03 11:41 | disposition home or self-care (01) ==
PROVIDERS: PCP Internal Medicine; Visit Provider Orthopaedic Surgery
DX: M25.561 Pain in right knee (principal)
CPT/HCPCS: 99024

== ENCOUNTER → 2023-11-03 11:28 | Outpatient (BNVA) | payer BC, SELFPAY | PROVIDERS: PCP Internal Medicine; Visit Provider Orthopaedic Surgery ==

== ENCOUNTER 2023-12-15 10:43 | Outpatient (AMB) | payer BC, SELFPAY ==
--- NOTE | 2023-12-15 10:50 | MHC.OFFVIS ---
Intake Visit Reasons: PO RT knee 10/21/23 Intake Note: Rivas is a 53 year old male who presents to the office today for a follow up RT knee 10/21/23. Pt states he is overall feeling well and is not taking any pain medications. Pt states the severe pain he had before has subsided. Allergies No Known Allergies Allergy (Verified 12/15/23 10:53) Medication List - Last Reconciled 12/15/23 by Gael White MD multivitamin 1 tab PO DAILY PFSH Medical History Arthritis Surgical History H/O colonoscopy History of appendectomy Social History Housing: House Patient Tobacco Use Status: Never used Tobacco Tobacco use type: Cigarette e-Cigarette/Vaping Use: Never Used Second Hand Smoke Exposure: No service: No Current occupational status: employed Cognitive needs: No Hearing needs: No Vision needs: Yes Physical Exam Extrem Other: Right knee examination shows that the surgical incisions are well healed, no erythema, minimal discomfort with range of motion, no instability Assessment & Plan Assessment & Plan (1) Knee pain, right: Code(s): M25.561 - Pain in right knee Category: Medical Plan Mr. James continues to do well after undergoing right knee arthroscopic surgery on 10/21/2023. Will gradually progress to activities as tolerated. He will follow up with me on an as-needed basis should his symptoms not plateau at an unacceptable level over the next few months. Feel free to call me at any time should questions regarding his orthopedic management arise. Coding Level of Care Code Global (36539) Diagnoses Knee pain, right M25.561
== END 2023-12-15 11:08 | disposition home or self-care (01) ==
PROVIDERS: PCP Internal Medicine; Visit Provider Orthopaedic Surgery
DX: M25.561 Pain in right knee (principal)
CPT/HCPCS: 99024

== ENCOUNTER → 2023-12-15 10:43 | Outpatient (BNVA) | payer BC, SELFPAY | PROVIDERS: PCP Internal Medicine; Visit Provider Orthopaedic Surgery ==

== ENCOUNTER 2024-05-14 10:26 | Outpatient (AMB) | payer BC, SELFPAY ==
--- NOTE | 2024-05-14 10:27 | A.OFFPC_ITS ---
Vital Signs 05/14/24 10:29 Height 6 ft 1 in Weight 247 lb BMI 32.6 BP 120/82 Blood Pressure Location Lt brachial Position Sitting Temp 97.1 F Temp Source Skin Intake Visit Reasons: Cold, Throat & Headache Respiratory Therapy Aide Required: No Accompanied by: Self / Same As Patient Allergies No Known Allergies Allergy (Verified 05/14/24 10:47) Medication List - Last Reconciled 05/14/24 by Hina Sol MD multivitamin 1 tab PO DAILY Tobacco use date assessed: 05/14/24 Dental Screening Dental Screen Date: 05/14/24 Did you have a dental visit in the last 12 months?: Yes Did you have a dental problem in the last 6 months where you did not have access to dental care?: No Was dental information given to patient?: Patient has dentist HPI HPI Comments History of Present Illness Details The patient is a 53-year-old male presenting with a sore throat, eye discomfort, and mild cough. The symptoms began last Tuesday with a sore throat, described as very sore initially. Accompanying symptoms include mild cough and generalized body aches. The left eye exhibited swelling and discomfort, culminating in conjunctivitis symptoms this morning, which includes gooey sensation and closure. The patient reports no shortness of breath and states the lungs feel fine. The sore throat has improved significantly but persists mildly. Patient denies sinus tenderness or rhinorrhea. The patient's son has been unwell, raising concerns about possible exposure. The patient has not undergone testing for COVID-19, Influenza, or RSV. [facility] Medical History (Updated 05/14/24 @ 11:16 by Hina Sol MD) Arthritis Surgical History H/O colonoscopy History of appendectomy Social History Housing: House Patient Tobacco Use Status: Never used Tobacco Tobacco use type: Cigarette e-Cigarette/Vaping Use: Never Used Second Hand Smoke Exposure: No service: No Current occupational status: employed Cognitive needs: No Hearing needs: No Vision needs: Yes Questionnaire PHQ-9 Over the last 2 weeks, how often have you been bothered by any of the following problems? 1. Little interest or pleasure in doing things: not at all 2. Feeling down, depressed, or hopeless: not at all 3. Trouble falling or staying asleep, or sleeping too much: not at all 4. Feeling tired or having little energy: not at all 5. Poor appetite or overeating: not at all 6. Feeling bad about yourself - or that you are a failure or have let yourself or your family down: not at all 7. Trouble concentrating on things, such as reading the newspaper or watching television: not at all 8. Moving or speaking so slowly that other people could have noticed. Or the opposite - being so fidgety or restless that you have been moving around a lot more than usual: not at all 9. Thoughts that you would be better off or of hurting yourself in some way: not at all Total score: 0 Depression Screening Interpretation: Negative Depression Screening Done: Yes 16311 - PHQ-9 Billing: Yes Source: Developed by Drs. Luis West, Kaitlin Gordillo, Leander Moya and colleagues, with an educational tyron from [employer]. Thrive Questionnaire Date Thrive assessed: 05/14/24 I am a: Patient What is your living situation today?: I have a steady place to live Within the past 12 months, did the food you bought not last and you didn't have the money to get more?: Never true Within the past 12 months, did you worry whether your food would run out before you got money to buy more?: Never true Do you have trouble paying for medicines?: No Do you have trouble getting transportation to medical appointments?: No Do you have trouble paying your heating and electricity bill?: No Do you have trouble taking care of your child, family member or friend?: No Do you have trouble with day-to-day activities such as bathing, preparing meals, shopping, managing finances, etc.?: No Are you currently unemployed and looking for a job?: No Are you interested in more education?: No Please select the resources that you would like help with: None Currently or been in a relationship where the following occur: No concerns reported THRIVE Score: 0 AUDIT C Alcohol Use Questionnaire (AUDIT-C) 1. How often do you have a drink containing alcohol?: Never Total Score: 0 Score Reviewed/Action Taken: No JOHN-7 AMB Questionnaire JOHN-7 Date JOHN - 7 assessed: 05/14/24 Feeling nervous, anxious, or on edge: 0 = Not at all Not being able to stop or control worryin = Not at all Worrying too much about different things: 0 = Not at all Trouble relaxin = Not at all Being so restless that it is hard to sit still: 0 = Not at all Becoming easily annoyed or irritable: 0 = Not at all Feeling afraid as if something awful might happen: 0 = Not at all Total JOHN-7 score (0-4 normal; 5-9 mild; 10-14 moderate; 15-21 severe): 0 Source: Developed by Drs. Luis West, Kaitlin Gordillo, Leander Moya and colleagues, with an educational tyron from [employer]. JOHN-7 Assessment Billing JOHN-7 Assessment Tool: JOHN-7 Assessment 41550 Review of Systems Const All systems reviewed & are unremarkable except as noted in HPI and below Eyes Reports eye discharge ENT Reports sinus pressure and Reports sore throat Card Denies chest pain at rest, Denies chest pain with activity, Denies edema, Denies irregular heart rhythm, Denies claudication, Denies dyspnea, Denies dyspnea on exertion, Denies orthopnea, Denies paroxysmal nocturnal dyspnea and Denies slow heart rate Resp Reports cough, Denies dyspnea and Denies dyspnea on exertion GI Denies abdominal pain, Denies change in bowel habits, Denies excessive flatus, Denies nausea and Denies vomiting Physical exam (Primary Care) Vital Signs: Last Vital Signs Temp 97.1 F 05/14/24 10:29 BP 120/82 05/14/24 10:29 BMI result Body Mass Index 32.6 BMI Assessment/Plan discussion: High BMI High, discussed plan: weight reduction, dietary and physical activity Tobacco/Smoking Status: Tobacco use Status Tobacco use date assessed 05/14/24 05/14/24 10:34 Patient Tobacco Use Status Never used Tobacco 05/14/24 10:34 Tobacco use type Cigarette 05/14/24 10:34 e-Cigarette/Vaping Use Never Used 05/14/24 10:34 PHQ-9: PHQ-9 Score PHQ-9: Total score 0 05/14/24 10:34 Depression Screening Interpretation: Negative Thrive Assessment: Date of Thrive Assessment Date Thrive assessed 05/14/24 05/14/24 10:34 Currently or been in a relationship where the following occur: No concerns reported Const General: cooperative [facility] General nose exam: No nasal discharge present Face and sinus: Yes sinus tenderness Mouth: Normal oral and palatal mucosa present Throat: Yes postnasal drainage Eyes Other: left eye conjunctival injection with purulent discharge Resp Effort & Inspection: normal respiratory effort Auscultation: clear to auscultation bilaterally Cardio Jugular venous distension: no JVD Rate: regular rate Rhythm: regular rhythm Heart sounds: S1 normal heart sound present and S2 normal heart sound present Extrem General: Yes full ROM Coding Level of Care Code Est Pt Level 3 (06988) Complex EM visit Add On G2211 Diagnoses Acute conjunctivitis, left eye H10.32 URI (upper respiratory infection) J06.9 Additional Codes PHQ-9 - 99571 - PHQ-9 Billing: Yes ([id number]) JOHN-7 Assessment Billing - JOHN-7 Assessment Tool: JOHN-7 Assessment 07755 ([id number]) Time Spent (min) 18 Assessment & Plan Assessment & Plan (1) Acute conjunctivitis, left eye: Code(s): H10.32 - Unspecified acute conjunctivitis, left eye Category: Medical (2) URI (upper respiratory infection): Code(s): J06.9 - Acute upper respiratory infection, unspecified Category: Medical Plan - Prescribe eye drops to manage conjunctivitis. - Recommend testing for COVID-19, Influenza, and RSV. - If tests are negative, consider prescribing Azithromycin Z-Korey). - Instruct the patient to refrain from work for 24 hours post-prescription of eye drops due to contagious conjunctivitis. Patient was informed and verbally consented to the use of an ambient scribe for clinic note documentation during this visit. During the consultation, I discussed with the patient the symptoms of conjunctivitis and the need for eye drops. Given the symptoms and possible exposure, I advised testing for COVID-19, Influenza, and RSV. It was noted that if viral infections are ruled out, an antibiotic could be considered. The importance of avoiding work for 24 hours due to conjunctivitis was emphasized. The patient seems to have understood the necessity of further diagnostic testing and agreed to visit the lab for testing. Orders: Orders SARS-CoV2/FLU/RSV Today R09.89 - Other specified symptoms and signs involving the circulatory and respiratory systems Medications: New tobramycin 0.3% 1 drp ophthalmic (eye) Q4H 7 days 5 mL 0RF H10.32 - Unspecified acute conjunctivitis, left eye Patient Instructions: - Use prescribed eye drops for conjunctivitis. - Get tested for COVID-19, Influenza, and RSV at the lab today. - Do not go to work for 24 hours after starting eye drops. - Await test results to determine if an antibiotic is needed.
[2024-05-14 10:29] VITALS: BP 120/82; TEMP 36.2; BMI 32.6
== END 2024-05-14 10:55 | disposition home or self-care (01) ==
PROVIDERS: PCP Internal Medicine; Visit Provider Internal Medicine
DX: H10.32 Unspecified acute conjunctivitis, left eye (principal); J06.9 Acute upper respiratory infection, unspecified

== ENCOUNTER 2024-05-14 10:26 | Outpatient (REF) | payer BC, SELFPAY ==
[2024-05-14 11:58] LABS: Influenza A PCR NEGATIVE (Negative); Influenza B PCR NEGATIVE (Negative); Resp Syncy Virus RNA Qual PCR NEGATIVE (Negative); SARS COV2 PCR INHOUSE NEGATIVE (Negative)
== END 2024-05-14 10:27 | disposition home or self-care (01) ==
LOC: HO.LAB 10:26
PROVIDERS: PCP Internal Medicine; Visit Provider Internal Medicine
DX: J06.9 Acute upper respiratory infection, unspecified (principal); H10.32 Unspecified acute conjunctivitis, left eye
CPT/HCPCS: 0241U; 96127

== ENCOUNTER 2024-08-28 08:50 | Outpatient (REF) | payer BC, SELFPAY ==
[2024-08-28 11:16] LABS: Hematocrit 44.9 % (42.0-52.0); Hemoglobin 15.4 g/dl (14.0-18.0); Mean Corpuscular HGB Conc 34.3 g/dl (31.0-36.0); Mean Corpuscular Hemoglobin 31.6 pg (27.0-33.0); Mean Platelet Volume 10.4 fL (9.4-12.4); Platelet Count 257 X10*3/uL (160-400); Red Blood Count 4.88 X10*6/uL (4.60-5.80); Red Cell Distribution Width 12.7 % (11.0-16.0); White Blood Count 6.3 X10*3/uL (4.8-10.8)
[2024-08-28 11:18] LABS: Alanine Aminotransferase 30 U/L (0-40); Albumin Level 4.1 g/dL (3.5-5.0); Alkaline Phosphatase 81 U/L (39-117); Anion Gap 9 (12-20); Aspartate Amino Transferase 23 U/L (5-37); Bilirubin Total 0.7 mg/dL (0.0-1.0); Blood Urea Nitrogen 14 mg/dL (9-16); Calcium 8.7 mg/dL (8.4-10.2); Carbon Dioxide 26 mmol/L (22-29); Chloride 108 mmol/L (96-108); Estimated Glomerular Filt Rate > 60; Glucose Fasting 85 mg/dL (60-99); Sodium 139 mmol/L (135-145); Total Protein 6.8 g/dL (6.5-8.0)
[2024-08-28 11:56] LABS: Prostate Specific Antigen Scr 0.55 ng/mL (<0.05-4.0)
[2024-09-09 14:23] LABS: Testosterone, Free 93.6 pg/mL (35.0-155.0); Testosterone, Total 529 ng/dL (250-1100)
== END 2024-08-28 08:51 | disposition home or self-care (01) ==
LOC: HO.LAB 08:50
PROVIDERS: PCP Physician Assistant; Visit Provider Physician Assistant
DX: R05.2 Subacute cough (principal); Z23 Encounter for immunization; R41.89 Other symptoms and signs involving cognitive functions and awareness; E66.811 Obesity, class 1; Z68.32 Body mass index [BMI] 32.0-32.9, adult; Z13.1 Encounter for screening for diabetes mellitus; Z12.5 Encounter for screening for malignant neoplasm of prostate
CPT/HCPCS: 36415; 80053; 84153; 84402; 84403; 85027; 90471; 90715; 96127

== ENCOUNTER 2024-08-28 08:50 | Outpatient (AMB) | payer BC, SELFPAY ==
[2024-08-28 08:52] VITALS: BP 126/82; PULSE 67; RESP 18; TEMP 36.2; O2SAT 98; BMI 32.8
--- NOTE | 2024-08-28 08:52 | MHC.PC.OV ---
Vital Signs 08/28/24 08:52 Height 6 ft 1 in Weight 248 lb 9.6 oz BMI 32.8 BP 126/82 Blood Pressure Location Lt brachial Position Sitting Respiration 18 Pulse 67 Pulse Source Pulse Oximeter Temp 97.1 F Temp Source Temporal Artery Scan Pulse Oximetry (%) 98 Oxygen Delivery Method Room Air Intake Visit Reasons: Transfer from [facility] [place] Operator Required: No Accompanied by: Self / Same As Patient Allergies No Known Allergies Allergy (Verified 08/28/24 09:07) Medication List - Last Reconciled 08/28/24 by Jeff Alexander PA-C multivitamin 1 tab PO DAILY Tobacco use date assessed: 08/28/24 Dental Screening Dental Screen Date: 08/28/24 Did you have a dental visit in the last 12 months?: Yes Did you have a dental problem in the last 6 months where you did not have access to dental care?: No Was dental information given to patient?: Patient has dentist HPI Transfer from [facility] HPI Details Patient is a 53-year-old male here today for a transfer of care visit. Previous PCP was Dr. Milton. Patient has a past medical history significant for knee osteoarthritis otherwise healthy 53-year-old male. Concern--> persistent morning cough that began during the winter five to six months ago. The cough, described as a deep, gag reflex-type sensation, manifests primarily upon waking or after tooth brushing, particularly exacerbated by cold air or minty toothpaste. Symptoms are non-productive and tend to clear up throughout the day. The patient denies any prior history of asthma and does not report heartburn, though questioned if allergies might be involved due to seasonal changes. Also reports symptoms of getting older such as lack of energy, brain fog in decrease enthusiasm. He is interested in checking his testosterone. Vaccines: Up-to-date with COVID vaccine, considering tetanus vaccine [facility] Medical History Arthritis Surgical History Hx of melanoma excision History of lateral meniscus repair of right knee H/O colonoscopy History of appendectomy Social History Housing: House Patient Tobacco Use Status: Never used Tobacco Tobacco use type: Cigarette e-Cigarette/Vaping Use: Never Used Second Hand Smoke Exposure: No service: No Current occupational status: employed Cognitive needs: No Hearing needs: No Vision needs: Yes (Glasses) Questionnaire PHQ-9 Over the last 2 weeks, how often have you been bothered by any of the following problems? 1. Little interest or pleasure in doing things: not at all 2. Feeling down, depressed, or hopeless: not at all 3. Trouble falling or staying asleep, or sleeping too much: not at all 4. Feeling tired or having little energy: not at all 5. Poor appetite or overeating: not at all 6. Feeling bad about yourself - or that you are a failure or have let yourself or your family down: not at all 7. Trouble concentrating on things, such as reading the newspaper or watching television: not at all 8. Moving or speaking so slowly that other people could have noticed. Or the opposite - being so fidgety or restless that you have been moving around a lot more than usual: not at all 9. Thoughts that you would be better off or of hurting yourself in some way: not at all Total score: 0 Depression Screening Interpretation: Negative Depression Screening Done: Yes 36093 - PHQ-9 Billing: Yes Source: Developed by Drs. Luis West, Kaitlin Gordillo, Leander Moya and colleagues, with an educational tyron from [employer]. Thrive Questionnaire Date Thrive assessed: 08/28/24 I am a: Patient What is your living situation today?: I have a steady place to live Within the past 12 months, did the food you bought not last and you didn't have the money to get more?: Never true Within the past 12 months, did you worry whether your food would run out before you got money to buy more?: Never true Do you have trouble paying for medicines?: No Do you have trouble getting transportation to medical appointments?: No Do you have trouble paying your heating and electricity bill?: No Do you have trouble taking care of your child, family member or friend?: No Do you have trouble with day-to-day activities such as bathing, preparing meals, shopping, managing finances, etc.?: No Are you currently unemployed and looking for a job?: No Are you interested in more education?: No Please select the resources that you would like help with: None Currently or been in a relationship where the following occur: No concerns reported THRIVE Score: 0 AUDIT C Alcohol Use Questionnaire (AUDIT-C) 1. How often do you have a drink containing alcohol?: 2-3 times a week 2. How many drinks containing alcohol do you have on a typical day when you are drinking?: 1 or 2 3. How often do you have six or more drinks on one occasion?: Less than monthly Total Score: 4 Score Reviewed/Action Taken: Yes JOHN-7 AMB Questionnaire JOHN-7 Date JOHN - 7 assessed: 08/28/24 Feeling nervous, anxious, or on edge: 0 = Not at all Not being able to stop or control worryin = Not at all Worrying too much about different things: 0 = Not at all Trouble relaxin = Not at all Being so restless that it is hard to sit still: 0 = Not at all Becoming easily annoyed or irritable: 3 = Nearly every day Feeling afraid as if something awful might happen: 0 = Not at all Total JOHN-7 score (0-4 normal; 5-9 mild; 10-14 moderate; 15-21 severe): 3 Source: Developed by Drs. Luis West, Kaitlin Gordillo, Leander Moya and colleagues, with an educational tyron from [employer]. JOHN-7 Assessment Billing JOHN-7 Assessment Tool: JOHN-7 Assessment 04180 Review of Systems Const Denies headache(s) Eyes Denies loss of vision ENT Denies vertigo, Denies dizziness, Denies headache(s) and Denies sore throat Card Denies chest pain, Denies leg edema and Denies lightheadedness Resp Denies cough, Denies hemoptysis and Denies wheezing GI Denies abdominal pain, Denies melena, Denies constipation, Denies diarrhea and Denies vomiting Denies dysuria, Denies urinary frequency and Denies urinary urgency Musc Denies arthralgias, Denies joint swelling, Denies numbness and Denies tingling Neuro Denies Abnormal speech present, Denies behavioral changes, Denies vertigo, Denies dizziness, Denies headache(s), Denies loss of vision, Denies memory loss, Denies numbness and Denies tingling Psych Denies anxiety, Denies behavioral changes, Denies depression, Denies memory loss and Denies panic attacks Frank/Lymph Denies easy bleeding and Denies easy bruising Aller/Immun Denies wheezing Physical exam (Primary Care) Vital Signs: Last Vital Signs Temp 97.1 F 08/28/24 08:52 Pulse 67 08/28/24 08:52 Resp 18 08/28/24 08:52 BP 126/82 08/28/24 08:52 Pulse Ox 98 08/28/24 08:52 Oxygen Delivery Method Room Air 08/28/24 08:52 BMI result Body Mass Index 32.8 BMI Assessment/Plan discussion: High BMI High, discussed plan: lifestyle, weight reduction, dietary and physical activity Tobacco/Smoking Status: Tobacco use Status Tobacco use date assessed 08/28/24 08/28/24 09:02 Patient Tobacco Use Status Never used Tobacco 08/28/24 09:02 Tobacco use type Cigarette 08/28/24 09:02 e-Cigarette/Vaping Use Never Used 08/28/24 09:02 PHQ-9: PHQ-9 Score PHQ-9: Total score 0 08/28/24 09:36 Depression Screening Interpretation: Negative Thrive Assessment: Date of Thrive Assessment Date Thrive assessed 08/28/24 08/28/24 09:02 Currently or been in a relationship where the following occur: No concerns reported Const General: healthy appearing, no acute distress, alert and awake Nutritional Appearance: well nourished Orientation/consciousness: oriented to person, oriented to place and oriented to time HENMT Ears: TM's normal bilaterally General nose exam: Normal nasal mucous membranes and turbinates present Eyes Conjunctivae: conjunctivae normal Sclerae: sclerae normal Pupils: Equal, round and reactive pupils present Neck Neck: Yes no lymphadenopathy and Yes no JVD Thyroid: Thyroid normal Carotids: no bruits Resp Effort & Inspection: normal respiratory effort and not tachypneic Auscultation: no crackles, no rales, no rhonchi and no wheezes Cardio Rate: regular rate Rhythm: regular rhythm Heart sounds: no murmurs and normal S1 and S2 GI Palpation (GI): Soft to palpation, nontender, no hepatomegaly and no splenomegaly Auscultation: normal bowel sounds Skin General skin exam: no rashes or lesions noted and dry skin Neuro General: oriented to person, oriented to place and oriented to time Cranial nerves: Yes Equal, round and reactive pupils present Speech: No Abnormal speech present Gait exam (Neuro): Normal gait present Motor exam (neuro): no tremor noted Extrem Right upper extremity: full ROM Left upper extremity: full ROM Right lower extremity: full ROM; no edema Left lower extremity: full ROM; no edema Psych Mental Status: mental status grossly normal Speech and movement: Normal speech and movement present Affect: normal affect Attitude: cooperative Thought process: Normal thought process present Immunizations Boostrix Tdap 2.5 Lf unit-8 mcg-5 Lf/0.5 mL intramuscular syringe Performing Provider: Jeff Alexander PA-C [place] [facility] Administered by: IJEOMA Puente on 08/28/24 09:35 Dose Route Admin Location Dispensed Lot Number Expiration Date [employer] 0.5 mL IM Right Deltoid 0.5 mL [id number] 12/05/26 36804-004-00 [employer] VIS Given Date VIS Provided VIS Publication Date 08/28/24 Single Vaccine 24 Eligibility Eligibility Date Funding Source Not [facility] Eligible 08/28/24 Private Coding Level of Care Code Est Pt Level 4 (21121) Diagnoses Subacute cough R05.2 Cough type: subacute Screening for diabetes mellitus (DM) Z13.1 Brain fog R41.89 Class 1 obesity E66.811 Additional Codes JOHN-7 Assessment Billing - JOHN-7 Assessment Tool: JOHN-7 Assessment 83454 ([id number]) PHQ-9 - 20657 - PHQ-9 Billing: Yes ([id number]) Assessment & Plan Assessment & Plan (1) Cough: Code(s): R05.9 - Cough, unspecified Category: Medical Qualifiers: Cough type: subacute Qualified Code(s): R05.2 - Subacute cough Plan: Consider an allergic component, possibly aggravated by cold exposure or mint flavoring in toothpaste. Suggested trial of Claritin for symptom control and maintain observation unless symptoms worsen. (2) Screening for diabetes mellitus (DM): Code(s): Z13.1 - Encounter for screening for diabetes mellitus Category: Medical Plan: As per HPI (3) Brain fog: Code(s): R41.89 - Other symptoms and signs involving cognitive functions and awareness Category: Medical Plan: Patient's report has been log in lack of energy over last several years, he attributes this to getting older. Will check his testosterone. (4) Class 1 obesity: Code(s): E66.811 - Obesity, class 1 Category: Medical Plan: Patient does understand his BMI is over 30 will work on being more physically active and adapting to better eating habits to reduce his weight Orders: Orders Comprehensive [place]. Panel Fast Today Z13.1 - Encounter for screening for diabetes mellitus Prostate Specific Antigen Scr Today Z12.5 - Encounter for screening for malignant neoplasm of prostate, Z13.1 - Encounter for screening for diabetes mellitus TDaP Immunization Today R41.89 - Other symptoms and signs involving cognitive functions and awareness, Z23 - Encounter for immunization Complete Blood Count no Diff Today Z13.1 - Encounter for screening for diabetes mellitus Testosterone, Free/Total Today R41.89 - Other symptoms and signs involving cognitive functions and awareness
--- OUTSIDE RECORDS SUMMARY | 2024-08-28 09:13 | XMS_ITS | Patient Health Record ---
Author Organization [facility] Address [address] [place] [address] Care Team Providers Care Food Aide Name Role Phone Karine ROCK, Frankie Primary Care Provider Luis Singh Unavailable [phone] Allergies No Known Allergies Reason For Referral No Information Medications Medication SIG (Take, Route, Frequency, Duration) Notes Start Date End Date Status Multivitamin - 1 tablet Orally Once a day for 30 day(s) Active Cyclobenzaprine HCl 5 MG Oral for 10 For tin nitus from Dr. Galo Active Social History Tobacco Use: Social History Observation Description Date Details (start date - stop date) Never Smoker NA - NA Tobacco Use/Smoking Question Answer Notes Patient is a nonsmoker Alcohol Screen Question Answer Notes Did you have a drink contain ing alcohol in the past year? Yes How often did you have a dri nk containing alcohol in the past year? Monthly or less (1 point) How many drinks did you have on a typical day when you were drinking in the past year? 1 or 2 drinks (0 point) How often did you have 6 or more drinks on one occasion in the past year? Never (0 point) Points 1 Interpretation Negative Section Notes: Nonsmoker; occasional alcoho l Problems Problem Type SNOMED Code ICD Code Onset Dates Problem Status W/U Status Risk Notes Problem [id number] Colon cancer screening (Z12.11) Active confirmed Problem Diverticulosis o f large intestine without perforation or abscess without bleeding (K57.30) Active confirmed Problem [id number] Preprocedural examination (Z01.818) Active confirmed Plan Of Treatment Future Test Test Name Order Date COLONOSCOPY 03/10/2023 Insurance Providers Payer Name Payer Address Payer Phone Subscriber Number Group Number Insured Name Patient Relationship to Insured Coverage Start Date Coverage End Date [facility] [employer] CLAIMS [address] [place] [address] [id number] KAROL ROJAS Self - patient is the insured Medical (General) History Medical History History ICD Code Denies OR,DM,CVA,Lung disease,renal dise ase Surgical History Surgery Date(Month/Year) appendectomy 1992
--- OUTSIDE RECORDS SUMMARY | 2024-08-28 09:13 | XMS_ITS ---
Author Organization [facility] Address [address] [place] [address] Care Team Providers Care Book Reviewer Name Role Phone Karine ROCK, Frankie Primary Care Provider Luis Singh Unavailable [phone] Allergies No Known Allergies REASON FOR VISIT Patient presents today for a colon screening Medications Medication SIG (Take, Route, Frequency, Duration) [...] Problem Status W/U Status Risk Notes Problem [id number] Colon cancer screening (Z12.11) Active confirmed Problem [id number] Preprocedural examination (Z01.818) Active confirmed Vital Signs Temperature 98.6 degrees Fahrenheit 03/10/20 23 Blood pressure systolic 00 mm Hg 03/10/20 23 Blood pressure diastolic 00 mm Hg 023 Height 6 ft 1 in in 03/10/2023 Weight 243 lbs 03/10/2023 BMI 32.06 kg/m2 03/10/2023 Encounters Encounter Location Date Provider Diagnosis [facility] [address] [place] [address] 03/10/2023 Luis Fields Colon cancer screeni ng Z12.11 and Preprocedural examination Z01.818 Assessments Encounter Date Diagnosis (ICD Code) Assessment Notes Treatment Notes Treatment Clinical Notes Section Notes 03/10/2023 Colon cancer screening (ICD-10 - Z12.11) Overall, Rony appears quite well. Given his age and good clinical appearance, I did recommend a colonoscopy for screening purposes. We did review the rationale for that in regard to colon cancer prevention. Full consent was obtained for this, including risks of bleeding and perforation. The procedure will be done with monitored anesthesia care. Rony was comfortable with this plan. Thank you again for allowing me to participate in Rony's care. I shall continue to keep you advised of his progress. 03/10/2023 Preprocedural examination (ICD-10 - Z01.818) Overall, Rony appears quite well. Given his age and good clinical appearance, I did recommend a colonoscopy for screening purposes. We did review the rationale for that in regard to colon cancer prevention. Full consent was obtained for this, including risks of bleeding and perforation. The procedure will be done with monitored anesthesia care. Rony was comfortable with this plan. Thank you again for allowing me to participate in Rony's care. I shall continue to keep you advised of his progress. Plan Of Treatment Future Test Test Name Order Date COLONOSCOPY 03/10/2023 Next Appt Details Follow Up: prn, Reason: Progress Notes * KAROL ROJASDOB:[birth year] (52 yo M)Acc No.[id number]:03/10/2023 Progress Notes Patient:?KAROL ROJAS Provider:?Luis Fields MD :1970???Age:52 Y???Sex:Male Dominguez e:03/10/2023 Address:[address] [place], [place] [id number] Pcp:Frankie Milton MD Subjective: * Chief Complaints: * ???Patient presents today fo r a colon screening * HPI: ???incontinence:? I saw Rony in the office today for evaluation of colorectal cancer screening. ?As you know, Rony is a healthy 52-year-old male who presently feels well. He enjoys a good appetite, without any significant heartburn or dysphagia. His bowel movements have been regular, without any hematochezia nor melena. He denies any abdominal pain, jaundice, nor weight loss. He denies any family history of first-degree relatives with colorectal cancer. He has never had a colonoscopy. * ROS:?General/Constitutional:?Change in appetite?denies.?Chills?denies.?Fatigue?denies.?Ophthalmologic:?Comments?all negative.?ENT:?Comments?all negative.?Respiratory:?hemoptysis?denies.?Cough?denies.?Cardiovascular:?Chest pain?denies.?Orthopnea?denies.?Gastrointestinal:?Comments?See HPI for details.?Genitourinary:?Hematuria?denies.?Dysuria?denies.?Musculoskeletal:?Painful joints?denies.?Weakness?denies.?Skin:?Itching?denies.?Rash?denies.?Neurologic:?Headache?denies.?Seizures?denies.?Psychiatric:?Comments?all negative.? * Medical History:? * Surgical History:?appendecto my 1992 * Hospitalization/Major Diagno stic Procedure:?No Hospitalization History. * Family History:?Father: dece ased, diagnosed with Diabetes.?Mother: .? No known hx of colon cancer. * Social History:?Tobacco Use:?Tobacco Use/Smoking?Patient is a?nonsmoker.?Drugs/Alcohol:?Alcohol Screen?Did you have a drink containing alcohol in the past year??Yes,?How often did you have a drink containing alcohol in the past year??Monthly or less (1 point), How many drinks did you have on a typical day when you were drinking in the past year??1 or 2 drinks (0 point),?How often did you have 6 or more drinks on one occasion in the past year??Never (0 point),?Points?1,?Interpretation?Negative.?Miscellaneous:?Marital status: . Occupation: set up mechanic automatic line. ???Nonsmoker; occasional alcohol. * Medications:?TakingMultivita min - Tablet 1 tablet Orally Once a dayCyclobenzaprine HCl 5 MG Tablet Oral , Notes: For tinnitus from Dr. Aragon List reviewed and reconciled with the patientTaking Multivitamin - Tablet 1 tablet Orally Once a dayTaking Cyclobenzaprine HCl 5 MG Tablet Oral , Notes: For tinnitus from Dr. Margo So reviewed and reconciled with the patient * Allergies:?N.K.D.A.yes[Aller gies Verified] Objective: * Vitals:?Wt: 243 lbs, Ht: 6 f t 1 in, BMI:32.06 Index, BP: 00/00 mm Hg, Temp: 98.6. * Examination: ???General Examination: ?GENERAL APPEARANCE:?pleasant, well nourished, well developed, in no acute distress.?EYES:?sclera non-icteric.?ORAL CAVITY:?mucosa moist.?NECK/THYROID:?no cervical lymphadenopathy, neck supple.?SKIN:?nonjaundiced, no spider angiomata.?HEART:?S1, S2 normal.?LUNGS:?clear to auscultation bilaterally.?ABDOMEN:?normal bowel sounds, no guarding or rigidity, no guarding or rigidity, no masses palpable, soft, nontender, nondistended.?EXTREMITIES:?no edema.?NEUROLOGIC:?alert and oriented.? Assessment: * Assessment: 1.?Preprocedural examination - Z01.818 (Primary)?2.?Colon cancer screening - Z12.11? Overall, Rony appears quite well. Given his age and good clinical appearance, I did recommend a colonoscopy for screening purposes. We did review the rationale for that in regard to colon cancer prevention. Full consent was obtained for this, including risks of bleeding and perforation. The procedure will be done with monitored anesthesia care. Rony was comfortable with this plan. Thank you again for allowing me to participate in Rony's care. I shall continue to keep you advised of his progress. Plan: * Treatment: * Procedure Codes:?3017F COLOR ECTAL CA SCREEN DOC [id number] TOBACCO NON-VIUMA0911 BP SCR NOT PRFRM REC REASON NOS * Preventive Medicine:? ??Counseling:?Care goal follow-up plan:?Above Normal BMI Follow-up?Giving encouragement to exercise,?BMI management provided?Yes.? * Follow Up:?prn * * Sign off status: Completed true * Provider:?Luis Fields MD Date:? 023 Generated for Nitesh rodríguez/Kike/Yaakov on:?08/28/2024 09:13 AM EDT History and Physical Notes * HPI (History of Present Illness) Category Sub-Category Detail Notes Category Not es incontinence I saw Rony in the office today for evaluation of colorectal cancer screening. As you know, Rony is a healthy 52-year-old male who presently feels well. He enjoys a good appetite, without any significant heartburn or dysphagia. His bowel movements have been regular, without any hematochezia nor melena. He denies any abdominal pain, jaundice, nor weight loss. He denies any family history of first-degree relatives with colorectal cancer. He has never had a colonoscopy. Examination Category Sub-Category Detail Notes Category Not es General Examination GENERAL APPEARANCE: pleasant , well nourished, well developed, in no acute distress HEAD: EYES: sclera non-icteric EARS: NOSE: THROAT: NECK/THYROID: no cervical lymphade nopathy, neck supple HEART: S1, S2 normal CHEST: LUNGS: clear to auscultatio n bilaterally ABDOMEN: normal bowel sounds, no guarding or rigidity, no guarding or rigidity, no masses palpable, soft, nontender, nondistended NEUROLOGIC: alert and oriented SKIN: nonjaundiced, no spi aurelia angiomata EXTREMITIES: no edema PERIPHERAL PULSES: BACK: BREASTS: MUSCULOSKELETAL: MALE GENITOURINARY: LYMPH NODES: RECTAL EXAM: FEMALE GENITOURINARY: ORAL CAVITY: mucosa moist
--- OUTSIDE RECORDS SUMMARY | 2024-08-28 09:13 | XMS_ITS ---
Author Organization [facility] Address [address] [place] [address] Care Team Providers Care Supervisor [employer] Name Role Phone Frankie Milton MD Primary Care Provider Luis Singh [phone] REASON FOR VISIT screening Problems Problem Type SNOMED Code ICD Code Onset Dates Problem Status W/U Status Risk Notes Problem Diverticulosis o f large intestine without perforation or abscess without bleeding (K57.30) Active confirmed Encounters Encounter Location Date Provider Diagnosis [facility] [facility] [address] [place], [place] [id number] 06/10/2023 Luis Fields Encounter for scre ening colonoscopy Z12.11 ; Rectal polyp K62.1 ; Colon polyps K63.5 ; Diverticulosis of large intestine without perforation or abscess without bleeding K57.30 and Other hemorrhoids K64.8 Assessments Encounter Date Diagnosis (ICD Code) Assessment Notes Treatment Notes Treatment Clinical Notes Section Notes 06/10/2023 Encounter for screening colonoscopy (ICD-10 - Z12.11) 06/10/2023 Rectal polyp (ICD-10 - K62.1) 06/10/2023 Colon polyps (ICD-10 - K63.5) 06/10/2023 Diverticulosis of large intestine without perforation or abscess without bleeding (ICD-10 - K57.30) 06/10/2023 Other hemorrhoids (ICD-10 - K64.8) Plan Of Treatment No Information Progress Notes * KAROL ROJASDOB:[birth year] (53 yo M)Acc No.[id number]:06/10/2023 COLON WITH MAC Patient:?KAROL ROJAS Provider:?Luis Fields MD :1970???Age:52 Y???Sex:Male Dominguez e:06/10/2023 Address:[address] [place], [place] [id number] Pcp:Frankie Milton MD Subjective: * Chief Complaints: * ???1. Screening. * Medical History:? Objective: * Vitals:? Assessment: * Assessment: 1.?Encounter for screening c olonoscopy - Z12.11 (Primary)???2.?Rectal polyp - K62.1???3.?Colon polyps - K63.5???4.?Diverticulosis of large intestine without perforation or abscess without bleeding - K57.30???5.?Other hemorrhoids - K64.8??? Plan: * Treatment: * Procedure Codes:?29263 LESIO N REMOVAL COLONOSCOPY, Modifiers: PT , 38835 COLONOSCOPY AND BIOPSY, Modifiers: 59 , PT * * The named appointment provid er may or may not be the originator of this progress note, and it is not deemed complete until electronically signed by the appointment provider. Sign off status: Pending * Provider:?Luis Fields MD Date:? 024 Generated for Nitesh rodríguez/Kike/Melanismitting on:?08/28/2024 09:13 AM EDT
== END 2024-08-28 09:33 | disposition home or self-care (01) ==
LOC: HO.HMCH 08:51
PROVIDERS: PCP Internal Medicine; Visit Provider Physician Assistant
DX: R05.2 Subacute cough (principal); Z13.1 Encounter for screening for diabetes mellitus; R41.89 Other symptoms and signs involving cognitive functions and awareness; E66.811 Obesity, class 1; Z23 Encounter for immunization; Z68.32 Body mass index [BMI] 32.0-32.9, adult